=== PATIENT | female | born 1950 | race Caucasian/White ===

== ENCOUNTER 2019-06-09 02:18 | Inpatient (IN) ==
[2019-06-09] MEDS ORDERED: LORazepam 2 MG/1 ML VIAL IV ONE (04:09)
[2019-06-09] MEDS ORDERED: ONDANSETRON 4 MG/2 ML VIAL IV PRN (04:27)
[2019-06-09] MEDS ORDERED: NICOTINE 21 MG/24 HR PATCH TRANSDERM PRN (04:27)
[2019-06-09] MEDS ORDERED: LORazepam 2 MG/1 ML VIAL IV PRN (04:27)
[2019-06-09] MEDS ORDERED: traZODone 50 MG TABLET PO PRN (04:27)
[2019-06-09] MEDS ORDERED: diphenhydrAMINE CAP 25 MG CAPSULE PO PRN (04:27)
[2019-06-09 04:35] LABS: Allen Test Positive
[2019-06-09 04:36] LABS: ABG Base Excess -0.7 MMOL/L (-2.5-2.5); ABG HCO3 23.8 MMOL/L (20-26); ABG Oxygen Saturation 97.6 % (95-100); ABG PCO2 43.4 MM HG (35-48); ABG PH 7.366 (7.35-7.45); ABG PO2 92.3 MM HG (80-95); ABG TCO2 21.6 MMOL/L (23-27)
[2019-06-09] MEDS ORDERED: methylPREDNISolone SOD SUC 40 MG/1 ML VIAL IV SCH (05:00)
[2019-06-09] MEDS: cefTRIAXone 1,000 MG in SYRINGE 1 EACH IV SCH (05:32)
[2019-06-09 05:38] LABS: Basophils % 0.4 % (0.0-0.8); Hematocrit 37.3 VOL% (35.7-47.0); Hemoglobin 11.7 GM/DL (12.0-16.0); Immature Granulocytes % 0.4 %; Immature Granulocytes Absolute 0.03 #; Lymphocytes # 0.4 10*3/uL (1.4-4.0); Lymphocytes % 5.2 % (21.3-54.2); Mean Corpuscular HGB Conc 31.4 GM/DL (32-36); Mean Corpuscular Volume 92.3 FL (87-102); Mean Platelet Volume 10.2 FL (9.6-12.0); Platelet Count 301 T/CUMM (130-400); Red Blood Count 4.04 MC/CUMM (3.8-5.5); Red Cell Distribution Width 13.1 % (9.3-17.3); White Blood Count 7.6 T/CUMM (4-12)
[2019-06-09 06:01] LABS: Band Neutrophils 15 % (0-10); Eosinophils 1 % (0-10); Hypochromasia 1+; Lymphocytes 5 % (20-55); Segmented Neutrophils 72 % (50-85); Total Cells Counted 100
[2019-06-09 06:10] LABS: Troponin I < 0.015 NG/ML (0.00-0.045)
[2019-06-09] MEDS: HEPARIN 5,000 UNIT/1 ML VIAL SUBCUT SCH ×3 (06:25→22:01)
[2019-06-09 06:29] LABS: Apearance,Urine CLOUDY (Clear); Bacteria,Urine Occasional /HPF (Few); Bilirubin,Urine Negative (Negative); Blood, Urine Moderate mg/dL (Negative); Glucose,Urine (UA) Negative (Negative); Hyaline Casts,Urine 24 /LPF (0-3); Ketones,Urine Negative (Negative); Mucus,Urine Occasional /LPF (Occasional); Nitrite,Urine Negative (Negative); Protein,Urine Negative; RBC,Urine 2 /HPF (0-4); Squamous Epithelial Cell,Urine Occasional /HPF (0-10); Urine Color Yellow (Yellow); Urine Specific Gravity 1.009 (1.001-1.035); Urine Urobilinogen < 2.0 EU/DL (0.2-1.0); WBC,Urine 1 /HPF (0-6)
[2019-06-09 06:45] LABS: Albumin 3.2 G/DL (3.4-5.0); Bilirubin,Total 0.4 MG/DL (0.2-1.0); Calcium 9.2 MG/DL (8.5-10.1); Osmolality,Calculated 281.7 MOS/KG (273-304); Risk Ratio 3.45; Thyroid Stimulating Hormone 0.945 uIU/ml (0.358-3.74); Total Protein 7.8 G/DL (6.4-8.3); VLDL CHOLESTEROL 19.4 MG/DL
[2019-06-09] MEDS: ALBUTEROL/IPRATROPIUM 3 ML NEB RESP TX SCH ×3 (08:18→19:19)
[2019-06-09] MEDS ORDERED: MAGNESIUM SULF RIDER 4 GM in PREMIX 1 EACH IV ONE (08:26)
[2019-06-09] MEDS: AZITHROMYCIN INJ 500 MG in SODIUM CHLORIDE 0.9% 250 ML IV SCH (09:00)
[2019-06-09] MEDS: methylPREDNISolone SOD SUC 40 MG/1 ML VIAL IV SCH ×2 (09:00→17:08)
[2019-06-09] MEDS: POTASSIUM CHLORIDE 20 MEQ TABLET PO SCH ×4 (09:01→20:31)
[2019-06-09] MEDS: PANTOPRAZOLE 40 MG TABLET PO SCH (09:01)
[2019-06-09 11:47] LABS: Troponin I < 0.015 NG/ML (0.00-0.045)
[2019-06-09] MEDS ORDERED: BISACODYL 10 MG SUPP RECTAL PRN (15:04)
[2019-06-09] MEDS ORDERED: BISACODYL 5 MG TABLET PO ONE (17:17)
[2019-06-09] MEDS ORDERED: SODIUM PHOSPHATE ENEMA 133 ML BOTTLE RECTAL ONE (17:17)
[2019-06-09 18:20] LABS: CKMB % 4.3 %; Troponin I < 0.015 NG/ML (0.00-0.045)
[2019-06-10] MEDS: POTASSIUM CHLORIDE 20 MEQ TABLET PO SCH
[2019-06-10] MEDS: methylPREDNISolone SOD SUC 40 MG/1 ML VIAL IV SCH ×3 (00:03→15:31)
[2019-06-10] MEDS: ALBUTEROL/IPRATROPIUM 3 ML NEB RESP TX SCH ×4 (00:31→20:06)
[2019-06-10 04:59] LABS: Basophils % 0.3 % (0.0-0.8); Hematocrit 37.2 VOL% (35.7-47.0); Hemoglobin 11.9 GM/DL (12.0-16.0); Lymphocytes # 1.1 10*3/uL (1.4-4.0); Lymphocytes % 10.7 % (21.3-54.2); Mean Corpuscular Volume 91.4 FL (87-102); Mean Platelet Volume 10.7 FL (9.6-12.0); Monocytes % 9.2 % (1.7-12.7); Neutrophils % 78.8 % (38.7-73.9); Platelet Count 337 T/CUMM (130-400); Red Blood Count 4.07 MC/CUMM (3.8-5.5); Red Cell Distribution Width 13.2 % (9.3-17.3)
[2019-06-10] MEDS: HEPARIN 5,000 UNIT/1 ML VIAL SUBCUT SCH ×3 (05:15→21:04)
[2019-06-10] MEDS: cefTRIAXone 1,000 MG in SYRINGE 1 EACH IV SCH (05:15)
[2019-06-10 05:25] LABS: Hypochromasia Slight; Microcytosis Slight
[2019-06-10 05:26] LABS: Platelet Estimate Normal
[2019-06-10 05:33] LABS: Calcium 9.6 MG/DL (8.5-10.1); Osmolality,Calculated 285.3 MOS/KG (273-304)
[2019-06-10] MEDS: AZITHROMYCIN INJ 500 MG in SODIUM CHLORIDE 0.9% 250 ML IV SCH (08:10)
[2019-06-10] MEDS: GABAPENTIN 400 MG CAPSULE PO PRN ×3 (08:17→20:36)
[2019-06-10] MEDS: PANTOPRAZOLE 40 MG TABLET PO SCH (08:17)
[2019-06-10] MEDS ORDERED: ALBUTEROL/IPRATROPIUM 3 ML NEB RESP TX PRN (11:11)
[2019-06-10] MEDS: ACETAMINOPHEN 325 MG TABLET PO PRN (11:33)
[2019-06-10] MEDS: guaiFENesin/DM ER 600-30 MG TABLET PO PRN (11:35)
[2019-06-10] MEDS: TOPIRAMATE 25 MG TABLET PO SCH ×2 (11:35→20:35)
[2019-06-10] MEDS: PARoxetine 20 MG TABLET PO SCH (11:36)
[2019-06-10] MEDS: SIMVASTATIN 10 MG TABLET PO SCH (11:36)
[2019-06-10] MEDS: DICYCLOMINE 10 MG CAPSULE PO SCH ×2 (15:00→20:35)
[2019-06-11] MEDS: methylPREDNISolone SOD SUC 40 MG/1 ML VIAL IV SCH ×3 (00:11→16:49)
[2019-06-11] MEDS: ALBUTEROL/IPRATROPIUM 3 ML NEB RESP TX SCH ×4 (00:38→19:50)
[2019-06-11] MEDS: ACETAMINOPHEN 325 MG TABLET PO PRN (03:11)
[2019-06-11] MEDS: guaiFENesin/DM ER 600-30 MG TABLET PO PRN (03:12)
[2019-06-11 05:17] LABS: Basophils % 0.3 % (0.0-0.8); Hematocrit 33.6 VOL% (35.7-47.0); Hemoglobin 10.3 GM/DL (12.0-16.0); Immature Granulocytes % 2.7 %; Immature Granulocytes Absolute 0.27 #; Lymphocytes # 1.3 10*3/uL (1.4-4.0); Mean Corpuscular HGB Conc 30.7 GM/DL (32-36); Mean Corpuscular Volume 94.9 FL (87-102); Mean Platelet Volume 10.4 FL (9.6-12.0); Monocytes % 7.5 % (1.7-12.7); Neutrophils % 76.5 % (38.7-73.9); Platelet Count 302 T/CUMM (130-400); Red Blood Count 3.54 MC/CUMM (3.8-5.5); Red Cell Distribution Width 13.2 % (9.3-17.3); White Blood Count 10.1 T/CUMM (4-12)
[2019-06-11 05:42] LABS: Calcium 9.1 MG/DL (8.5-10.1); Osmolality,Calculated 291.8 MOS/KG (273-304)
[2019-06-11] MEDS: cefTRIAXone 1,000 MG in SYRINGE 1 EACH IV SCH (05:51)
[2019-06-11] MEDS: HEPARIN 5,000 UNIT/1 ML VIAL SUBCUT SCH ×3 (05:52→22:19)
[2019-06-11 06:46] LABS: Hypochromasia Slight; Lymphocytes 9 % (20-55); Platelet Estimate Normal; Polychromasia Few; Segmented Neutrophils 88 % (50-85); Total Cells Counted 100
[2019-06-11] MEDS: AZITHROMYCIN INJ 500 MG in SODIUM CHLORIDE 0.9% 250 ML IV SCH (08:39)
[2019-06-11] MEDS: PANTOPRAZOLE 40 MG TABLET PO SCH (08:43)
[2019-06-11] MEDS: DICYCLOMINE 10 MG CAPSULE PO SCH ×3 (08:43→20:24)
[2019-06-11] MEDS: TOPIRAMATE 25 MG TABLET PO SCH ×2 (08:43→20:25)
[2019-06-11] MEDS: buPROPion XL 150 MG TABLET PO SCH (08:43)
[2019-06-11] MEDS: SIMVASTATIN 10 MG TABLET PO SCH (08:43)
[2019-06-11] MEDS: PARoxetine 20 MG TABLET PO SCH (08:43)
[2019-06-11] MEDS: ASPIRIN CHEW 81 MG TABLET PO SCH (13:42)
[2019-06-11] MEDS: MORPHINE 4 MG/1 ML VIAL IV PRN (18:17)
[2019-06-11] MEDS: GABAPENTIN 400 MG CAPSULE PO PRN (20:29)
[2019-06-12] MEDS: MORPHINE 4 MG/1 ML VIAL IV PRN (00:43)
[2019-06-12] MEDS: methylPREDNISolone SOD SUC 40 MG/1 ML VIAL IV SCH ×2 (00:47→08:58)
[2019-06-12] MEDS: ALBUTEROL/IPRATROPIUM 3 ML NEB RESP TX SCH ×2 (01:59→07:10)
[2019-06-12] MEDS: cefTRIAXone 1,000 MG in SYRINGE 1 EACH IV SCH (05:43)
[2019-06-12] MEDS: HEPARIN 5,000 UNIT/1 ML VIAL SUBCUT SCH (05:47)
[2019-06-12] MEDS: AZITHROMYCIN INJ 500 MG in SODIUM CHLORIDE 0.9% 250 ML IV SCH (08:52)
[2019-06-12] MEDS: ASPIRIN CHEW 81 MG TABLET PO SCH (08:55)
[2019-06-12] MEDS: PARoxetine 20 MG TABLET PO SCH (08:55)
[2019-06-12] MEDS: PANTOPRAZOLE 40 MG TABLET PO SCH (08:56)
[2019-06-12] MEDS: SIMVASTATIN 10 MG TABLET PO SCH (08:56)
[2019-06-12] MEDS: TOPIRAMATE 25 MG TABLET PO SCH (08:56)
[2019-06-12] MEDS: buPROPion XL 150 MG TABLET PO SCH (08:56)
[2019-06-12] MEDS: DICYCLOMINE 10 MG CAPSULE PO SCH (08:57)
[2019-06-12 12:53] VITALS: BP 128/88
[2019-06-13] MEDS ORDERED: fentaNYL 25 MCG/HR PATCH TRANSDERM SCH (09:00)
== END 2019-06-12 13:15 | disposition home or self-care (01) | DRG 190 ==
LOC: SUATTDRO 03:48 → N.ICU 03:48 → N.4E 17:15
PROVIDERS: ADMIT Internal Medicine; ATTEND Internal Medicine